=== PATIENT | female | born 1965 | race Caucasian/White ===

== ENCOUNTER 2018-02-26 22:07 | Emergency (ER) | payer BC ==
[2018-02-26] MEDS ORDERED: Ketorolac 10 MG Tab PO ONE (22:08)
[2018-02-26 22:30] VITALS: BP 169/100
--- NOTE | 2018-02-26 23:05 | EDM.PDOC ---
ED HPI GENERAL MEDICAL PROBLEM - General Chief Complaint: General Stated Complaint: right side pain Time Seen by Provider: 02/26/18 22:44 Source of Information: Reports: Patient History Limitations: Reports: No Limitations - History of Present Illness INITIAL COMMENTS - FREE TEXT/NARRATIVE: Patient presents with right flank/RUQ/RLQ pain that started 4-5 hours ago and has been quite constant but worse lying down. She is most comfortable sitting leaning forward. She took 4 Tylenol 500's and admits she has been very busy moving and hasn't been drinking much water the last couple days. She vomited once a couple hours ago, from the pain. No nausea now. Normal bowel movements today and usually. She has had bladder and kidney infections that felt somewhat similar but this is worse. Pain is 6-7/10. She ate supper 6 hours ago and that was fine. She thinks her appetite has been a little decreased the last several days. 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, Other (see below) Right Lower Abdomen Pain Score (Numeric/FACES): 7 - Related Data Allergies Allergy/AdvReac Type Severity Reaction Status Date / Time No Known Allergies Allergy Verified 02/26/18 22:30 Home Meds: Home Meds ALPRAZolam [Alprazolam] 0.5 mg PO Q12H PRN 08/17/13 [History] SUMAtriptan Succinate [Imitrex] 100 mg PO DAILY PRN 08/17/13 [History] Pseudoephedrine HCl [Suphedrine] 30 mg PO Q4H PRN 01/15/16 [History] Biotin 10,000 mcg PO DAILY 02/26/18 [History] Multivitamin [Multivitamins] 1 cap PO DAILY 02/26/18 [History] Ubidecarenone [Coq-10] 200 mg PO DAILY 02/26/18 [History] atorvaSTATin [Lipitor] 10 mg PO BEDTIME 02/26/18 [History] Past Medical History HEENT History: Reports: Hard of Hearing, Impaired Vision Genitourinary History: Reports: UTI, Recurrent Musculoskeletal History: Reports: Fracture Neurological History: Reports: Headaches, Chronic Psychiatric History: Reports: Anxiety, Depression Endocrine/Metabolic History: Reports: Other (See Below) Other Endocrine/Metabolic History: Borderline diabetes Oncologic (Cancer) History: Reports: Basal Cell Carcinoma - Infectious Disease History Infectious Disease History: Reports: Chicken Pox - Past Surgical History HEENT Surgical History: Reports: Tonsillectomy, Other (See Below) Other HEENT Surgeries/Procedures: L ear surgery for hearing Female Surgical History: Reports: Oophorectomy Social & Family History - Tobacco Use Smoking Status *Q: Never Smoker Second Hand Smoke Exposure: No - Caffeine Use Caffeine Use: Reports: Coffee, Soda, Tea - Recreational Drug Use Recreational Drug Use: No ED ROS GENERAL - Review of Systems Review Of Systems: See Below Constitutional: Reports: Decreased Appetite. Denies: Fever, Chills, Malaise, Weakness HEENT: Reports: No Symptoms. Denies: Ear Pain, Throat Pain, Vision Change Respiratory: Reports: No Symptoms. Denies: Shortness of Breath, Cough Cardiovascular: Reports: No Symptoms. Denies: Chest Pain, Syncope Endocrine: Reports: No Symptoms GI/Abdominal: Reports: Abdominal Pain, Decreased Appetite. Denies: Black Stool , Bloody Stool, Constipation, Diarrhea, Difficulty Swallowing, Nausea : Reports: Dysuria (slight), Flank Pain (right) Musculoskeletal: Reports: No Symptoms Skin: Denies: Cyanosis, Jaundice, Mottled, Pallor, Diaphoresis Neurological: Reports: No Symptoms. Denies: Confusion, Dizziness, Headache, Seizure, Syncope, Trouble Speaking, Weakness, Change in Speech Psychiatric: Denies: Agitation, Anxiety, Confusion ED EXAM, GENERAL - Physical Exam Exam: See Below Exam Limited By: No Limitations General Appearance: Alert, WD/WN, No Apparent Distress Eye Exam: Bilateral Eye: EOMI, Normal Inspection, PERRL Ears: Normal External Exam, Hearing Grossly Normal Nose: Normal Inspection, No Blood Throat/Mouth: Normal Inspection, Normal Lips, Normal Voice, No Airway Compromise Head: Atraumatic, Normocephalic Neck: Normal Inspection, Full Range of Motion Respiratory/Chest: No Respiratory Distress, Lungs Clear, Normal Breath Sounds, No Accessory Muscle Use Cardiovascular: Regular Rate, Rhythm, No Murmur GI/Abdominal: Normal Bowel Sounds, Soft, No Organomegaly, No Distention, Tender (RUQ is most tender extending laterally and inferiorly.). No: Guarding, Rigid, Rebound Back Exam: CVA Tenderness (R). No: CVA Tenderness (L) Extremities: Normal Inspection, Normal Range of Motion Neurological: Alert, Oriented, Normal Cognition, No Motor/Sensory Deficits Psychiatric: Normal Affect, Normal Mood Skin Exam: Warm, Dry, Intact, Normal Color, No Rash Course - Vital Signs Last Recorded V/S: Last Vital Signs Temp 97.3 F 02/26/18 22:24 Pulse 77 02/26/18 22:24 Resp 24 H 02/26/18 22:24 BP 169/100 H 02/26/18 22:24 Pulse Ox 96 02/26/18 22:24 - Orders/Labs/Meds Orders: Active Orders 24 hr Category Date Time Status Abdomen Pelvis w Cont [CT] Stat Exams 02/26/18 23:34 Ordered UA W/MICROSCOPIC [URIN] Stat Lab 02/26/18 22:57 Ordered Sodium Chloride 0.9% [Normal Saline] 50 ml Med 02/26/18 23:45 Active IV ASDIRECTED Medication Orders Sodium Chloride (Normal Saline) 50 mls @ 200 mls/hr IV ASDIRECTED TONIO Labs: Laboratory Tests 02/26/18 02/26/18 02/26/18 Range/Units 22:55 23:02 23:02 WBC 11.2 H (5.0-10.0) 10^3/uL RBC 4.86 (3.80-5.50) 10^6/uL Hgb 13.4 (12.0-16.0) g/dL Hct 40.9 (37.0-47.0) % MCV 84.2 (82.0-92.0) fL MCH 27.6 (27.0-31.0) pg MCHC 32.8 (32.0-36.0) g/dL RDW 13.9 (11.5-14.5) % Plt Count 301 H (150-300) 10^3/uL MPV 7.6 (7.4-10.4) fL Neut % (Auto) 69.0 (50.0-70.0) % Lymph % (Auto) 24.0 (20.0-40.0) % Ulster % (Auto) 5.1 (2.0-8.0) % Eos % (Auto) 1.5 (1.0-3.0) % Baso % (Auto) 0.4 (0.0-1.0) % Neut # (Auto) 7.7 H (2.5-7.0) 10^3/uL Lymph # (Auto) 2.7 (1.0-4.0) 10^3/uL Ulster # (Auto) 0.6 (0.1-0.8) 10^3/uL Eos # (Auto) 0.2 (0.1-0.3) 10^3/uL Baso # (Auto) 0.0 (0.0-0.1) 10^3/uL Sodium 142 (136-145) mmol/L Potassium 4.1 (3.3-5.3) mmol/L Chloride 103 (98-115) mmol/L Carbon Dioxide 26.3 (21.0-32.0) mmol/L BUN 18 (6-25) mg/dL Creatinine 0.96 (0.51-1.17) mg/dL Est Cr Clr Drug Dosing 65.63 mL/min Estimated GFR (MDRD) > 60 mL/min Glucose 190 H (70-110) mg/dL Calcium 9.2 (8.7-10.3) mg/dL Total Bilirubin 0.4 (0.2-1.0) mg/dL AST 13 L (15-37) U/L ALT 27 (12-78) U/L Alkaline Phosphatase 90 (46-116) IU/L Total Protein 7.6 (6.4-8.2) g/dL Albumin 3.62 (3.00-4.80) g/dL Lipase 191 (73-393) U/L Specimen Type Urincc Urine Color Yellow (YELLOW) Urine Appearance Clear (CLEAR) Urine pH 5.0 (5.0-9.0) Ur Specific Victor 1.025 (1.005-1.030) Urine Protein Trace H (NEGATIVE) mg/dL Urine Glucose (UA) Negative (NEGATIVE) mg/dL Urine Ketones Trace H (NEGATIVE) mg/dL Urine Occult Blood Moderate H (NEGATIVE) Urine Nitrite Negative (NEGATIVE) Urine Bilirubin Negative (NEGATIVE) Urine Urobilinogen 0.2 (0.2-1.0) E.U./dL Ur Leukocyte Esterase Negative (NEGATIVE) Urine RBC 20-30 H /HPF Urine WBC 0-5 /HPF Ur Epithelial Cells Moderate H /LPF Urine Bacteria Rare (NONE TO FEW) /HPF Urine Mucus Rare H (NEGATIVE) /LPF Meds: Medications Generic Name Dose Route Start Last Admin Trade Name Freq PRN Reason Stop Dose Admin Sodium Chloride 50 mls @ 200 mls/hr 02/26/18 23:45 Normal Saline IV ASDIRECTED TONIO Discontinued Medications Generic Name Dose Route Start Last Admin Trade Name Onel PRN Reason Stop Dose Admin Iopamidol 100 ml 02/26/18 23:47 Isovue-300 (61%) IVPUSH 02/26/18 23:48 ONETIME ONE Ketorolac Tromethamine 30 mg 02/26/18 23:36 02/26/18 23:54 Toradol IVPUSH 02/26/18 23:37 30 mg ONETIME ONE Administration Ondansetron HCl 4 mg 02/27/18 00:48 Zofran IVPUSH 02/27/18 00:49 ONETIME ONE Ondansetron HCl Confirm 02/27/18 00:50 Zofran Administered 02/27/18 00:51 Dose 4 mg .ROUTE .[facility] ONE - Re-Assessments/Exams Free Text/Narrative Re-Assessment/Exam: 02/26/18 23:37 Labs show hematuria but no evidence of UTI. Will do CT and Toradol. Patient denies any kidney disease. 02/27/18 01:25 CT shows 5 mm calculus in the distal right ureter as well as a 4 mm stone in lower left kidney. Patient is feeling a lot better after Toradol and Zofran. Pain is down from 7 to 3. Discussed findings and treatment plan. A strainer is sent home with her to catch the stone for analysis. Patient discharged to home in stable condition. Departure - Departure Time of Disposition: 01:23 Disposition: Home, Self-Care 01 Condition: Good Clinical Impression: Right distal ureteral calculus - Discharge Information Instructions: Dietary Guidelines to Help Prevent Kidney Stones, Kidney Stones Referrals: Analilai Benjamin MD [Primary Care Provider] - Forms: ED Department Discharge Additional Instructions: 1. Drink 8 cups of water daily. 2. Take the Ketorolac and Zofran as directed. 3. If you catch the stone, take it to your PCP for analysis. 4. Follow up with your PCP or ER as needed if worsening or not resolving. - My Orders Last 24 Hours: My Active Orders 02/26/18 22:57 UA W/MICROSCOPIC [URIN] Stat 02/26/18 23:34 Abdomen Pelvis w Cont [CT] Stat 02/26/18 23:45 Sodium Chloride 0.9% [Normal Saline] 50 ml IV ASDIRECTED - Assessment/Plan Last 24 Hours: My Active Orders 02/26/18 22:57 UA W/MICROSCOPIC [URIN] Stat 02/26/18 23:34 Abdomen Pelvis w Cont [CT] Stat 02/26/18 23:45 Sodium Chloride 0.9% [Normal Saline] 50 ml IV ASDIRECTED
[2018-02-26] MEDS ORDERED: Ketorolac 30 MG/ML SDV IVPUSH ONE (23:36)
[2018-02-26 23:43] LABS: CHLORIDE,CL 103 mmol/L (98-115); SODIUM,NA 142 mmol/L (136-145)
[2018-02-26] MEDS ORDERED: Sodium Chloride 0.9% 50 ML IV SCH (23:45)
[2018-02-26] MEDS ORDERED: Iopamidol 612 MG/ML 100 ML Bottle IVPUSH ONE (23:47)
[2018-02-27] MEDS ORDERED: Ondansetron 4 MG/2 ML SDV IVPUSH ONE (00:48)
[2018-02-27] MEDS ORDERED: Ondansetron 4 MG/2 ML SDV ONE (00:50)
[2018-02-27] MEDS ORDERED: Ketorolac 10 MG Tab PO ONE (01:20)
== END 2018-02-27 01:35 | disposition home or self-care (01) ==
LOC: SUPCPDRO 22:07 → KA.ED 22:07
DX: N13.2 Hydronephrosis with renal and ureteral calculous obstruction (principal); F41.9 Anxiety disorder, unspecified; F32.9 Major depressive disorder, single episode, unspecified
CPT/HCPCS: 36415; 74177; 80053; 81001; 83690; 85025; 96374; 96375; 99284; A9270-GY; J1885; J2405; J7050; Q9967